=== PATIENT | female | born 1935 | race Caucasian/White ===

== ENCOUNTER 2018-07-24 12:46 | Inpatient (IN) | payer MEDICARE, SELFPAY ==
[2018-07-24 14:11] LABS: #Eosinphils 0.2 thou/uL (0.0-0.7); #Lymphocytes 2.3 thou/uL (1.20-3.40); #Monocytes 0.9 thou/uL (0.11-0.59); #Neutrophils 4.1 thou/uL (1.40-6.50); %Basophils 0.4 % (0.0-1.0); %Eosinophils 3.2 % (0.0-10.0); %Lymphocytes 30.5 % (21.0-51.0); %Monocytes 11.7 % (0.0-10.0); %Neutrophils 54.3 % (42.0-75.0); Hemoglobin 11.1 g/dL (12.0-16.0); Mean Corpuscular Volume 88.2 fL (78.0-98.0); Mean Platelet Volume 6.9 fL (7.4-10.4); Platelet Count 233 thou/uL (130-400); RBC Distribution Width 12.6 % (11.5-14.5); Red Blood Cell (RBC) Count 3.69 mill/uL (4.20-5.40); White Blood Cell (WBC) Count 7.5 thou/uL (4.8-10.8)
[2018-07-24 14:29] LABS: ALT (SGPT) 14 U/L (8-55); AST (SGOT) 15 U/L (5-34); Albumin 3.3 g/dL (3.4-4.8); Alkaline Phosphatase 113 U/L (40-150); Anion Gap 14 mmol/L (10-20); BUN (Urea Nitrogen) 11 mg/dL (9.8-20.1); Bilirubin, Total 0.5 mg/dL (0.2-1.2); Calc. Creatinine Clearance 0 mL/min (70-130); Calcium 8.7 mg/dL (7.8-10.44); Carbon Dioxide 27 mmol/L (23-31); Chloride 100 mmol/L (98-107); Estimated GFR-MDRD 52; Glucose 112 mg/dL (83-110); Protein, Total 6.3 g/dL (6.0-8.3); Sodium 139 mmol/L (136-145)
[2018-07-24 14:36] LABS: Potassium 2.3 mmol/L (3.5-5.1)
[2018-07-24] MEDS ORDERED: Potassium Chloride 20 MEQ TAB ONE (14:41)
[2018-07-24] MEDS ORDERED: cefTRIAXone\\ROCEPHIN 1 GM VIAL ONE (15:35)
--- NOTE | 2018-07-24 15:42 | ULT ---
VENOUS DUPLEX SONOGRAM RIGHT LOWER EXTREMITY: HISTORY: Right leg pain and edema. FINDINGS: The right common femoral vein and greater saphenous junction were evaluated along with the femoral, d eep femoral, and posterior tibial vein. Popliteal vein not well visualized due to patient positionin g and lack of mobility. Good color and spectral Doppler flow and compression. IMPRESSION: No sonographic evidence of deep vein thrombosis within the right lower extremity. POS: ARUN
[2018-07-24] MEDS ORDERED: Ondansetron PF 4 MG/2 ML Vial IVP PRN (18:53)
[2018-07-24] MEDS ORDERED: Acetaminophen 325 MG TAB PO PRN (18:53)
[2018-07-24] MEDS ORDERED: Ondansetron ODT 4 MG TAB SL PRN (18:53)
[2018-07-24] MEDS ORDERED: NS 0.9% w/ 40 MEQ KCL 1,000 ML IV SCH (19:00)
--- NOTE | 2018-07-24 20:15 | RAD ---
THREE VIEWS LEFT FOOT: 07/24/18 HISTORY: Left foot pain. FINDINGS: There is mild osteoarthritis involving the first metatarsophalangeal joint,+ tarsometatarsal joints, and tarsal bones. No fracture or dislocation is appreciated. Two screws are seen overlying the distal left fibula. A plantar calcaneal enthesophyte is identified. IMPRESSION: 1. No acute osseous abnormality involving the left foot. 2. Degenerative changes. POS: ARUN
[2018-07-25 05:40] LABS: #Eosinphils 0.2 thou/uL (0.0-0.7); #Lymphocytes 1.9 thou/uL (1.20-3.40); #Monocytes 0.9 thou/uL (0.11-0.59); #Neutrophils 7.1 thou/uL (1.40-6.50); %Basophils 0.2 % (0.0-1.0); %Eosinophils 1.7 % (0.0-10.0); %Lymphocytes 19.1 % (21.0-51.0); %Monocytes 9.1 % (0.0-10.0); %Neutrophils 69.9 % (42.0-75.0); Hemoglobin 10.4 g/dL (12.0-16.0); Mean Corpuscular Volume 88.1 fL (78.0-98.0); Mean Platelet Volume 7.1 fL (7.4-10.4); Platelet Count 233 thou/uL (130-400); RBC Distribution Width 12.8 % (11.5-14.5); Red Blood Cell (RBC) Count 3.46 mill/uL (4.20-5.40); White Blood Cell (WBC) Count 10.1 thou/uL (4.8-10.8)
[2018-07-25 06:02] LABS: Anion Gap 12 mmol/L (10-20); BUN (Urea Nitrogen) 10 mg/dL (9.8-20.1); Calc. Creatinine Clearance 0 mL/min (70-130); Calcium 8.5 mg/dL (7.8-10.44); Carbon Dioxide 27 mmol/L (23-31); Chloride 105 mmol/L (98-107); Estimated GFR-MDRD 65; Glucose 106 mg/dL (83-110); Sodium 141 mmol/L (136-145)
[2018-07-25 06:06] LABS: Potassium 2.9 mmol/L (3.5-5.1)
[2018-07-25] MEDS: NS 0.9% w/ 40 MEQ KCL 1,000 ML IV SCH ×2 (06:42→10:44)
[2018-07-25] MEDS ORDERED: Acetaminophen 325 MG TAB PO PRN (11:40)
[2018-07-25] MEDS ORDERED: traMADol HCl 50 MG TAB PO PRN (11:45)
[2018-07-25] MEDS: Potassium Chloride 20 MEQ TAB PO SCH ×2 (11:51→16:09)
[2018-07-25] MEDS: Piperacillin/Tazobactam 3.375 GM in Sodium Chloride 0.9% 100 ML IVPB SCH ×2 (11:52→18:10)
--- NOTE | 2018-07-25 17:07 | CON ---
DATE OF CONSULTATION: 07/25/2018 REASON FOR CONSULTATION: Cellulitis. HISTORY OF PRESENT ILLNESS: Ms. Oh is an 83-year-old lady, who used to live in [place], but because of inability to care for self, was transferred to this area to 1 of the local nursing homes. She had fallen in [place] and has not been able to ambulate since. Apparently has chronic venous stasis and developed cellulitis in the right leg, which was being managed with oral antimicrobial therapy without clearing the inflammatory process. Therefore, she was admitted. She also had a reported diagnosis of deep vein thrombosis and had been started on Eliquis elsewhere. Currently, the patient on Zosyn. She denies any headaches, visual symptoms, sore throat, odynophagia, or dysphagia. No cough or sputum production. No chest pain. No abdominal pain. She is voiding in a diaper. PAST MEDICAL HISTORY: Includes venous insufficiency, hyperlipidemia, and deep vein thrombosis on Eliquis. PAST SURGICAL HISTORY: Negative. SOCIAL HISTORY: Former smoker, quit 2 years ago. Used to live by herself in [place], but had to be transferred to this area because she is unable to care for self anymore. ALLERGIES: NONE. CURRENT MEDICATIONS: 1. Eliquis. 2. Lipitor. 3. Dorzolamide. 4. Timolol. 5. Piperacillin/tazobactam. 6. Tramadol. PHYSICAL EXAMINATION: VITAL SIGNS: T-max 98.8, blood pressure 101/51, pulse 81, respirations 16, and O2 saturation 94% to 95%. SKIN: Shows a few areas of bruising and shallow ulceration in various parts of her body skin, pressure areas from her mobility disorder, and then she has this area of purpuric cellulitic skin eruption in the right leg extending from the area immediately below the knee to the foot. She has a peripheral IV access. No lymphadenopathy. HEENT: Ocular movements conjugate. Oral cavity normal except for absence of teeth. NECK: Supple. No jugular vein distention. LUNGS: Symmetric. Clear breath sounds. HEART: S1 and S2. Regular rate. No S3 or S4. ABDOMEN: Soft, not distended or tender. No ascites. No bladder distention. EXTREMITIES: Pulses are 1+ in popliteal and dorsalis pedis. She has not much edema left after recumbent position. She moves extremities on command. She has pain on extension of her feet, mostly at the lateral aspect plantar side. NEUROLOGIC: She is oriented to self and place. She had a hard time in telling me the date. Did follow commands, but her replies were sluggish. LABORATORY DATA: White cell count 7.5 and 10.1, hemoglobin 11, MCV 88, and platelets 233 with 54% neutrophils. Chemistry with potassium 2.3 and 2.9 and creatinine 1.01. Liver profile normal. Albumin 3.3, serum total protein 6.3. No microbiology information. ASSESSMENT: 1. Venous insufficiency. 2. Mobility issues. 3. Hypokalemia. 4. Cellulitis, right leg. 5. Stage 2 to 3 ulcerations and pressure areas. 6. Plantar fasciitis. DISCUSSION: The patient will be converted to Rocephin and then oral Keflex for discharge planning. Switch to penicillin V, potassium 250 mg twice daily for 1 year plus compression wrap for legs. The patient would benefit from a foot extensor device for nighttime to start stretching her plantar fascia and Achilles tendon in preparation for resuming ambulatory capabilities. Job ID: [id number]
[2018-07-25] MEDS: Apixaban 5 MG TAB PO SCH (20:31)
[2018-07-25] MEDS: Gabapentin 300 MG CAP PO SCH (20:31)
[2018-07-25] MEDS: Atorvastatin Calcium 10 MG TAB PO SCH (20:31)
[2018-07-25] MEDS: DorzolamidE/Timolol 2%/0.5% Ophth Soln 10 ml Bottle EA EYE SCH (20:32)
--- NOTE | 2018-07-25 20:48 | HP ---
CHIEF COMPLAINT: Right leg swelling and pain. HISTORY OF PRESENT ILLNESS: Ms. Oh is an 83-year-old female with past medical history of hypertension; heel decubitus, left; and history of DVT; sent from the care home [facility] and they noticed to have right leg swelling with erythema and pain. The patient did not have any fever. The patient was recently admitted to the care home from a Hospital in [place], where she was diagnosed with cellulitis of the leg as well as DVT both legs. The patient was put on an Eliquis as well as antibiotics Zyvox and transferred to the care home. The patient just finished a course of Zyvox about few days ago, and she is continued on Eliquis, but nursing staff noted that the right leg swelling and erythema got worse in the last two days. It is warm to touch and the patient is complaining of pain and to have fever. The patient is unable to ambulate secondary to pain when she stands. It is possibly due to the left heel ulcer. In the ER, the patient was evaluated and found to have right leg cellulitis. The patient received a dose of Rocephin and admitted for further evaluation and management. DVT study venogram was done and still negative for DVT. PAST MEDICAL HISTORY: 1. Hypertension. 2. Hyperlipidemia. 3. Venous insufficiency. 4. DVT of both legs. PAST SURGICAL HISTORY: Status post an IVC filter done 10 years ago according to the patient for her DVT. CURRENT MEDICATIONS: The patient is on, 1. Tylenol p.r.n. 2. Eliquis 5 mg b.i.d. 3. Dorzolamide. 4. Timolol eye drops daily b.i.d. 5. Lasix 40 mg daily. 6. Losartan 100 mg daily. 7. Nifedipine 90 mg daily. 8. Simvastatin 20 mg daily. 9. Tramadol one q.6 p.r.n. ALLERGIES: NKDA. FAMILY HISTORY: Nothing contributory. SOCIAL HISTORY: The patient lives in a care home. No history of smoking. No history of alcohol. REVIEW OF SYSTEMS: CARDIOVASCULAR: No chest pain, no shortness of breath. RESPIRATORY: No cough, cold, congestion. GASTROINTESTINAL: No nausea, vomiting, abdominal pain. GENITOURINARY: No dysuria. CENTRAL NERVOUS SYSTEM: No headache. No dizziness. PHYSICAL EXAMINATION: GENERAL: The patient is alert, awake, oriented x3. VITALS SIGNS: Temperature 98, pulse 66, standing blood pressure 116/60. HEENT: Normocephalic, atraumatic. Pupils equal and reactive. Nasopharynx is pale and dry. ABDOMEN: Soft. No lesions. SKIN: Turgor decreased. NECK: Supple. No JVD. LUNGS: Bilateral air entry. No rales or rhonchi. HEART: S1 and S2, regular. ABDOMEN: Soft. No distention. No tenderness. No organomegaly. Bowel sounds present. RECTAL: No symptoms. CENTRAL NERVOUS SYSTEM: No focal deficit. EXTREMITIES: There is swelling of right lower leg and erythema is less warm to touch. SKIN: Examination showed there is an ulcer on the lateral aspect of the right lower leg as well as there is a stage II ulcer on the right heel area. There is also stage II ulcer in the sacral area. LABORATORY DATA: CBC shows WBC 7.5, hemoglobin 11, hematocrit 32, platelets 233. Metabolic panel: Sodium 139, potassium 2.3, chloride 100, CO2 of 27. Blood urea nitrogen 11, creatinine 1, glucose 112. X-ray of the right foot negative. DVT, venogram ultrasound negative. ASSESSMENT: 1. Possible cellulitis of right lower leg. 2. Severe hypokalemia. 3. Venous insufficiency. 4. History of hypertension. 5. History of deep vein thrombosis, both legs. 6. Status post IVC filter 10 years ago. 7. Hyperlipidemia. 8. Left heel decubitus, sacral area stage 2. PLAN: 1. Vital signs q.4 hours. 2. Activity as tolerated. 3. Allergies, NKDA. 4. Hep-Lock. 5. Zosyn 3.375 g IV piggyback q.6 hours. 6. Continue care home medications. 7. Hold blood pressure medications. 8. Diet regular. 9. We will add gabapentin 300 mg b.i.d. 10. Elevate right leg. 11. Compression stockings. 12. Consult Dr. Smith. Job ID: [id number]
[2018-07-26] MEDS: Piperacillin/Tazobactam 3.375 GM in Sodium Chloride 0.9% 100 ML IVPB SCH ×4 (01:28→18:10)
[2018-07-26 06:42] LABS: #Eosinphils 0.3 thou/uL (0.0-0.7); #Lymphocytes 2.2 thou/uL (1.20-3.40); #Monocytes 0.9 thou/uL (0.11-0.59); #Neutrophils 4.3 thou/uL (1.40-6.50); %Basophils 0.3 % (0.0-1.0); %Eosinophils 3.3 % (0.0-10.0); %Lymphocytes 28.6 % (21.0-51.0); %Monocytes 11.7 % (0.0-10.0); %Neutrophils 56.1 % (42.0-75.0); Hemoglobin 9.9 g/dL (12.0-16.0); Mean Corpuscular Hemoglobin 30.6 pg (27.0-31.0); Mean Corpuscular Volume 89.9 fL (78.0-98.0); Mean Platelet Volume 7.2 fL (7.4-10.4); Platelet Count 251 thou/uL (130-400); RBC Distribution Width 13.1 % (11.5-14.5); Red Blood Cell (RBC) Count 3.23 mill/uL (4.20-5.40); White Blood Cell (WBC) Count 7.7 thou/uL (4.8-10.8)
[2018-07-26 07:01] LABS: Anion Gap 11 mmol/L (10-20); BUN (Urea Nitrogen) 10 mg/dL (9.8-20.1); Calc. Creatinine Clearance 66 mL/min (70-130); Carbon Dioxide 23 mmol/L (23-31); Chloride 109 mmol/L (98-107); Estimated GFR-MDRD 65; Glucose 93 mg/dL (83-110); Potassium 3.8 mmol/L (3.5-5.1); Sodium 139 mmol/L (136-145)
[2018-07-26] MEDS: DorzolamidE/Timolol 2%/0.5% Ophth Soln 10 ml Bottle EA EYE SCH ×2 (09:42→20:36)
[2018-07-26] MEDS: Apixaban 5 MG TAB PO SCH ×2 (09:42→20:36)
[2018-07-26] MEDS: Gabapentin 300 MG CAP PO SCH ×2 (09:42→20:36)
[2018-07-26 16:51] VITALS: BMI 29.4
[2018-07-26] MEDS: Atorvastatin Calcium 10 MG TAB PO SCH (20:36)
[2018-07-27] MEDS: Piperacillin/Tazobactam 3.375 GM in Sodium Chloride 0.9% 100 ML IVPB SCH ×4 (00:10→18:28)
[2018-07-27] MEDS: Gabapentin 300 MG CAP PO SCH ×2 (10:49→21:35)
[2018-07-27] MEDS: DorzolamidE/Timolol 2%/0.5% Ophth Soln 10 ml Bottle EA EYE SCH ×2 (10:49→21:36)
[2018-07-27] MEDS: Apixaban 5 MG TAB PO SCH ×2 (10:49→21:35)
[2018-07-27] MEDS: Atorvastatin Calcium 10 MG TAB PO SCH (21:36)
[2018-07-28] MEDS: Piperacillin/Tazobactam 3.375 GM in Sodium Chloride 0.9% 100 ML IVPB SCH ×4 (01:11→17:51)
[2018-07-28] MEDS: Apixaban 5 MG TAB PO SCH ×2 (09:27→21:31)
[2018-07-28] MEDS: Gabapentin 300 MG CAP PO SCH ×2 (09:27→21:31)
[2018-07-28] MEDS: DorzolamidE/Timolol 2%/0.5% Ophth Soln 10 ml Bottle EA EYE SCH ×2 (09:27→21:31)
[2018-07-28] MEDS: Atorvastatin Calcium 10 MG TAB PO SCH (21:31)
[2018-07-29] MEDS: Piperacillin/Tazobactam 3.375 GM in Sodium Chloride 0.9% 100 ML IVPB SCH ×3 (00:03→11:11)
[2018-07-29 07:12] LABS: #Basophils 0.1 thou/uL (0.0-0.2); #Eosinphils 0.2 thou/uL (0.0-0.7); #Lymphocytes 2.3 thou/uL (1.20-3.40); #Monocytes 0.7 thou/uL (0.11-0.59); #Neutrophils 2.4 thou/uL (1.40-6.50); %Basophils 0.9 % (0.0-1.0); %Eosinophils 3.7 % (0.0-10.0); %Lymphocytes 41.1 % (21.0-51.0); %Monocytes 11.7 % (0.0-10.0); %Neutrophils 42.7 % (42.0-75.0); Hemoglobin 10.5 g/dL (12.0-16.0); Mean Corpuscular HGB CONC 33.3 g/dL (32.0-36.0); Mean Corpuscular Hemoglobin 29.6 pg (27.0-31.0); Mean Platelet Volume 7.1 fL (7.4-10.4); Platelet Count 327 thou/uL (130-400); RBC Distribution Width 13.1 % (11.5-14.5); Red Blood Cell (RBC) Count 3.55 mill/uL (4.20-5.40); White Blood Cell (WBC) Count 5.7 thou/uL (4.8-10.8)
[2018-07-29 07:28] LABS: Anion Gap 12 mmol/L (10-20); BUN (Urea Nitrogen) 7 mg/dL (9.8-20.1); Calc. Creatinine Clearance 67 mL/min (70-130); Calcium 8.3 mg/dL (7.8-10.44); Carbon Dioxide 24 mmol/L (23-31); Chloride 109 mmol/L (98-107); Estimated GFR-MDRD 66; Glucose 87 mg/dL (83-110); Sodium 142 mmol/L (136-145)
[2018-07-29 07:34] LABS: Potassium 2.9 mmol/L (3.5-5.1)
[2018-07-29] MEDS: Gabapentin 300 MG CAP PO SCH ×2 (09:09→20:03)
[2018-07-29] MEDS: Apixaban 5 MG TAB PO SCH ×2 (09:09→20:02)
[2018-07-29] MEDS: DorzolamidE/Timolol 2%/0.5% Ophth Soln 10 ml Bottle EA EYE SCH ×2 (09:09→20:05)
[2018-07-29] MEDS: Potassium Chloride 20 MEQ TAB PO SCH ×4 (11:10→20:03)
--- NOTE | 2018-07-29 16:48 | PRG ---
DATE OF SERVICE: SUBJECTIVE: Feeling better. No respiratory symptoms. No abdominal pain. Still with moderate pain in the right leg. OBJECTIVE: VITAL SIGNS: Normal. Marked improvement of the erythema in the right leg. LUNGS: Clear. HEART: S1 and S2. Regular rate. ABDOMEN: Soft. EXTREMITIES: She has BOO hose in right and left lower extremities. LABORATORY DATA: White cell count 5.7, hemoglobin 10. Potassium 2.9. Microbiology, no sample submitted. ASSESSMENT AND DISCUSSION: Venous insufficiency, mobility issues, hypokalemia, cellulitis of right leg, stage II to III ulcerations, pressure areas, plantar fasciitis. We will switch her to oral Keflex a few more days and then suppression with penicillin VK for a year plus compression stockings. Job ID: [id number]
[2018-07-29] MEDS ORDERED: Magnesium 2 GM/50 ML 2 GM in Premix Bag 1 BAG IVPB SCH (18:30)
[2018-07-29] MEDS: Atorvastatin Calcium 10 MG TAB PO SCH (20:02)
[2018-07-29] MEDS: Cephalexin 250 MG CAP PO SCH (20:03)
[2018-07-30] MEDS: Cephalexin 250 MG CAP PO SCH ×3 (05:46→20:03)
[2018-07-30] MEDS: DorzolamidE/Timolol 2%/0.5% Ophth Soln 10 ml Bottle EA EYE SCH ×2 (07:58→20:03)
[2018-07-30] MEDS: Apixaban 5 MG TAB PO SCH ×2 (07:58→20:03)
[2018-07-30] MEDS: Gabapentin 300 MG CAP PO SCH ×2 (07:58→20:03)
[2018-07-30 09:29] LABS: Anion Gap 13 mmol/L (10-20); BUN (Urea Nitrogen) 6 mg/dL (9.8-20.1); Calc. Creatinine Clearance 66 mL/min (70-130); Calcium 8.7 mg/dL (7.8-10.44); Carbon Dioxide 22 mmol/L (23-31); Chloride 108 mmol/L (98-107); Estimated GFR-MDRD 65; Glucose 153 mg/dL (83-110); Potassium 3.5 mmol/L (3.5-5.1); Sodium 139 mmol/L (136-145)
[2018-07-30] MEDS: Potassium Chloride 20 MEQ TAB PO SCH ×2 (10:23→15:26)
[2018-07-30] MEDS: Atorvastatin Calcium 10 MG TAB PO SCH (20:03)
[2018-07-31] MEDS: Cephalexin 250 MG CAP PO SCH ×3 (05:28→20:08)
[2018-07-31 06:51] LABS: #Basophils 0.1 thou/uL (0.0-0.2); #Eosinphils 0.2 thou/uL (0.0-0.7); #Lymphocytes 2.3 thou/uL (1.20-3.40); #Monocytes 0.6 thou/uL (0.11-0.59); #Neutrophils 3.3 thou/uL (1.40-6.50); %Basophils 1.2 % (0.0-1.0); %Eosinophils 2.8 % (0.0-10.0); %Monocytes 9.6 % (0.0-10.0); %Neutrophils 51.4 % (42.0-75.0); Hemoglobin 11.3 g/dL (12.0-16.0); Mean Corpuscular HGB CONC 33.3 g/dL (32.0-36.0); Mean Corpuscular Hemoglobin 29.9 pg (27.0-31.0); Mean Corpuscular Volume 89.8 fL (78.0-98.0); Mean Platelet Volume 7.4 fL (7.4-10.4); Platelet Count 347 thou/uL (130-400); RBC Distribution Width 13.3 % (11.5-14.5); Red Blood Cell (RBC) Count 3.77 mill/uL (4.20-5.40); White Blood Cell (WBC) Count 6.4 thou/uL (4.8-10.8)
[2018-07-31 06:54] LABS: Anion Gap 10 mmol/L (10-20); BUN (Urea Nitrogen) 11 mg/dL (9.8-20.1); Calc. Creatinine Clearance 68 mL/min (70-130); Calcium 8.7 mg/dL (7.8-10.44); Carbon Dioxide 26 mmol/L (23-31); Chloride 108 mmol/L (98-107); Estimated GFR-MDRD 68; Glucose 87 mg/dL (83-110); Potassium 3.5 mmol/L (3.5-5.1); Sodium 140 mmol/L (136-145)
[2018-07-31] MEDS: Apixaban 5 MG TAB PO SCH ×2 (08:16→20:08)
[2018-07-31] MEDS: Gabapentin 300 MG CAP PO SCH ×2 (08:16→20:08)
[2018-07-31] MEDS: DorzolamidE/Timolol 2%/0.5% Ophth Soln 10 ml Bottle EA EYE SCH ×2 (08:16→20:08)
[2018-07-31] MEDS: Potassium Chloride 20 MEQ TAB PO SCH ×2 (12:43→16:43)
[2018-07-31] MEDS: Atorvastatin Calcium 10 MG TAB PO SCH (20:08)
[2018-08-01] MEDS: Cephalexin 250 MG CAP PO SCH ×3 (06:20→15:50)
[2018-08-01] MEDS: DorzolamidE/Timolol 2%/0.5% Ophth Soln 10 ml Bottle EA EYE SCH (08:04)
[2018-08-01] MEDS: Apixaban 5 MG TAB PO SCH (08:04)
[2018-08-01] MEDS: Gabapentin 300 MG CAP PO SCH (08:04)
[2018-08-01] MEDS ORDERED: Potassium Chloride 10 MEQ TAB PO SCH (09:00)
[2018-08-01 09:30] LABS: Anion Gap 13 mmol/L (10-20); BUN (Urea Nitrogen) 12 mg/dL (9.8-20.1); Calc. Creatinine Clearance 66 mL/min (70-130); Calcium 8.4 mg/dL (7.8-10.44); Carbon Dioxide 20 mmol/L (23-31); Chloride 109 mmol/L (98-107); Estimated GFR-MDRD 65; Glucose 151 mg/dL (83-110); Potassium 3.9 mmol/L (3.5-5.1); Sodium 138 mmol/L (136-145)
[2018-08-01 15:56] VITALS: BP 117/59; TEMP 97.8
--- NOTE | 2018-08-02 12:49 | DIS ---
DATE OF ADMISSION: 07/24/2018 DATE OF DISCHARGE: 08/01/2018 ADMITTING DIAGNOSES: 1. Possible cellulitis of the right lower leg. 2. Severe hypokalemia. 3. Venous insufficiency. 4. History of hypertension. 5. History of deep venous thrombosis, both legs. 6. Status post IVC filter 10 years ago. 7. Hyperlipidemia. 8. Left heel decubitus and also decubitus sacral area, stage 2 or stage 3. FINAL DIAGNOSES: 1. Cellulitis, right lower leg, improved. 2. Venous insufficiency, right lower leg, improving. 3. Severe hypokalemia, corrected. 4. Deep venous thrombosis by history. 5. Status post IVC filter many years ago. 6. Left heel decubitus and also decubitus of the sacrum and also decubitus of the right ankle area. BRIEF SUMMARY OF HOSPITAL COURSE: Ms. Oh is an 83-year-old female, admitted because of right leg swelling. The patient was found to have marked swelling of the right lower leg with erythema, warmness, possible cellulitis. The patient was started on IV antibiotic with Zosyn. The patient was seen directly once in ID consultation. He felt the patient also has marked venous insufficiency, suggested compression stockings as well as continued with antibiotics for now and then later maybe she may need long-term suppressive antibiotics. Wound care team consulted regarding the decubitus. She was started also on physical therapy. In the next few days, her right leg swelling markedly improved, erythema has completely disappeared. The patient is able to stand now. The patient was also found to have severe hypokalemia with a potassium of 2.3 on admission, later improved to 3.8, again it dropped to 2.9, so she was given supplements of potassium and it came up to 3.9. In view of improvement, the patient is being discharged back to [facility]. PHYSICAL EXAMINATION: VITAL SIGNS: At the time of discharge, she was stable and her vital signs were stable. LUNGS: Clear. HEART: S1 and S2 regular. ABDOMEN: Soft, nontender. Bowel sounds heard. DISCHARGE MEDICATIONS: Include: 1. Simvastatin 20 mg daily. 2. Eliquis 5 mg b.i.d. 3. Tramadol 50 q.i.d. p.r.n. 4. Tylenol p.r.n. 5. Keflex 500 three times a day for 10 days. 6. Cosopt eye drops b.i.d. 7. Gabapentin 300 b.i.d. 8. Losartan 50 mg daily. 9. KCl 10 mEq daily. The patient will continue with physical therapy at the [facility] and also wound care. Job ID: [id number]
--- NOTE | 2018-08-05 07:14 | PQF ---
LYNNETTE TAPIA VENKAT R MD [id number] [id number] CLINICAL DOCUMENTATION CLARIFICATION FORM: POST DISCHARGE DATE: 08/05/2018 ATTN: Dr. Langley Please exercise your independent, professional judgment in responding to the clarification form. Clinical indicators are provided on the bottom of this form for your review Please check appropriate box(s): [ ] Pressure Ulcer: (Stage I: Erythema; Stage II: Partial thickness; Stage III : Full thickness; Stage IV: Necrosis to muscle/bone) [ ] Location: Sacrum POA: [ ] Yes [ ] No[ ] Unable to determine Stage (I to IV): [ ] Location: Left Heel POA: [ ] Yes [ ] No[ ] Unable to determine Stage (I to IV): [ ] Location: Right Ankle POA: [ ] Yes [ ] No[ ] Unable to determine Stage (I to IV): ) [ ] Location: Lower Mid Back POA: [ ] Yes [ ] No[ ] Unable to determine Stage (I to IV): ) [ ] Location: Upper Mid Back POA: [ ] Yes [ ] No[ ] Unable to determine Stage (I to IV): ) ___y____ I (concur) with the Wound Care findings as stated below. [ ] No pressure ulcer diagnosis [ ] Deep tissue injury [ ] Other diagnosis (please specify) [ ] Unable to determine In addition, please specify: Present on Admission (POA): [ y ] Yes [ ] No [ ] Unable to determine For continuity of documentation, please document condition throughout progress notes and discharge summary. Thank You. CLINICAL INDICATORS - SIGNS / SYMPTOMS / LABS Per Wound Care: Pressure Ulcer Sacrum: Stage III. Pressure Ulcer Lower Mid Back: Stage III. Pressure Ulcer Upper Mid Back: Stage III. Per H&P: There is an ulcer on the lateral aspect of the right lower leg as well as there is a stage II ulcer on the right heel area. There is also Stage II ulcer in the sacral area. Left heel decubitus, sacral area stage 2. Progress note 07/29 Dr. Smith: Stage II to III ulcerations, pressure areas. Per 07/[address] Smith: Stage 2 to 3 ulcerations and pressure areas. Per discharge summary admitting diagnoses: Left heel decubitus and also decubitus sacral area, stage 2 or stage 3. Final diagnoses: Left heel decubitus and also decubitus of the sacrum and also decubitus of the right ankle area. RISK FACTORS: Mobility Issues. Venous insufficiency. I TREATMENTS: Wound care consult [facility]. Clean with normal saline. Applied Medihoney sheet to base of wound. Covered with protective foam composite dressing. Compression stockings. (This form is maintained as a part of the permanent medical record) 2014 [employer] All Rights Reserved Mandi [email or web address] [phone] NATHANIEL
== END 2018-08-01 18:07 | DRG 602 ==
LOC: ERS 12:46 → T4-B 15:52 → OBSVTOIN 15:52
PROVIDERS: ADMIT Internal Medicine; ATTEND Internal Medicine
DX: L03.115 Cellulitis of right lower limb (principal); L89.153 Pressure ulcer of sacral region, stage 3; L89.103 Pressure ulcer of unspecified part of back, stage 3; L89.622 Pressure ulcer of left heel, stage 2; L89.519 Pressure ulcer of right ankle, unspecified stage; I10 Essential (primary) hypertension; E78.5 Hyperlipidemia, unspecified; E87.6 Hypokalemia; E83.42 Hypomagnesemia; I87.2 Venous insufficiency (chronic) (peripheral); M72.2 Plantar fascial fibromatosis; Z86.718 Personal history of other venous thrombosis and embolism; Z87.891 Personal history of nicotine dependence; Z79.01 Long term (current) use of anticoagulants; Z79.899 Other long term (current) drug therapy
CPT/HCPCS: 36415; 80048; 80053; 83605; 83735; 85025; 96365; G8978-GP-CM; G8979-GP-CL; J0696; J2543; J7050

== ENCOUNTER 2018-09-24 08:01 | Outpatient (CLI) | payer MEDICARE, OTHER ==
--- NOTE | 2018-09-24 11:19 | MRI ---
MRI CERVICAL SPINE: Multiplanar, multisequential imaging of the cervical spine obtained. INDICATION: Fall with injury to neck. Exam is degraded due to motion artifact. FINDINGS: Cervical vertebrae maintain height and alignment. Degenerative disk changes are seen throughout the cervical spine with loss of disk space and height and spondylitic change. At C3-4, disk bulge and spondylosis abut and mildly impinge on the anterior cord. Mild right foramin al narrowing due to facet and uncinate hypertrophy. At C4-5, disk bulge and spondylosis impinge on the anterior cord. Mild foraminal encroachment from u ncinate and facet hypertrophy. At C5-6, posterior disk bulge and spondylosis abut the anterior cord. Right foraminal stenosis due t o facet and uncinate hypertrophy. At C6-7, disk bulge and spondylosis efface the anterior subarachnoid space. No significant cord impi ngement. No significant foraminal narrowing. Cord signal appears normally preserved. 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 POS: ARUN
--- NOTE | 2018-09-24 11:47 | MRI ---
MRI LUMBAR SPINE WITHOUT CONTRAST: HISTORY: Weakness. Low back pain. COMPARISON: None. TECHNIQUE: An MRI of the lumbar spine is performed without intravenous Gadolinium administration. Multisequenti al, multiplanar imaging is performed. FINDINGS: Appropriate T1 marrow signal intensity of the lumbar vertebrae. Lumbar spine vertebral body height i s maintained. There is no fracture. There is loss of disk space height, osteophyte formation, and a small amount of fluid at the anterior aspect of the T11-T12 disk space. There is 4.5 mm of anterolisthesis of L4 upon L5. There are type I modic changes at the L4-L5 disk s pace and minimal type I modic changes along the anterior right aspect of the L5-S1 disk space. Type I modic change is also noted at T12-L1. Appropriate signal intensity of the visualized paraspinal muscles. Mild atrophy of the left posterio r paraspinal muscles is noted. Appropriate signal intensity of the visualized solid organs. Cysts i n the left renal pelvis. The conus medullaris terminates at the upper aspect of L1. T12-L1: Adequate disk hydration. No significant central canal stenosis. The foramina are patent. L1-L2: Desiccation with mild loss of disk space height. There is a T2 and STIR hyperintensity along the posterior aspect of the annulus with resultant mild central canal stenosis. The foramina are pa tent. L2-L3: Desiccation with mild loss of disk space height. Generalized disk bulge, ligamentum flavum t hickening, and facet hypertrophy result in mild central canal stenosis. Moderate to severe right and moderate left foraminal narrowing. L3-L4: Desiccation with mild loss of disk space height. Generalized disk bulge, mild ligamentum fla vum thickening, and facet hypertrophy result in mild central canal stenosis. Mild to moderate right and left foraminal narrowing. L4-L5: Desiccation with moderate loss of disk space height. Generalized disk bulge and facet hypert rophy result in mild central canal stenosis. There is narrowing of the left subarticular zone with p artial obscuration of the traversing left L5 nerve root. There is left greater than right facet hype rtrophy. Moderate right and moderate to severe left neural foraminal narrowing. L5-S1: Desiccation with mild loss of disk space height. There is narrowing of the left subarticular zone secondary to disk material. There is mass effect without obscuration of the traversing left S1 nerve root. There is a small amount of fluid in both facet joints. There is no significant central canal stenosis. Moderate to severe bilateral foraminal narrowing. IMPRESSION: Degenerative changes of the lumbar spine, as detailed above. POS: ARUN
--- NOTE | 2018-09-24 12:23 | RAD ---
LUMBAR SPINE FIVE VIEWS: HISTORY: Weakness and back pain. TECHNIQUE: Lateral view taken with neutral, flexion, and extension positions. FINDINGS: In the frontal position, there is a slight scoliotic curvature to the right. Degenerative changes ar e noted with osteophytes in the lumbar vertebrae. On the lateral view, there is loss of disk space a t L2-L3, L4-L5, and L5-S1. No significant listhesis identified, and no change in alignment with flex ion and extension. Facet hypertrophy. Mild osteophytes from the vertebrae. IMPRESSION: Degenerative changes of the lumbar spine, as described. POS: ARUN
== END 2018-09-24 08:02 | disposition home or self-care (01) ==
LOC: MRI 08:01
PROVIDERS: ATTEND Neurological Surgery
DX: M54.5 Low back pain (principal); R53.1 Weakness; R26.89 Other abnormalities of gait and mobility; M47.812 Spondylosis without myelopathy or radiculopathy, cervical region; M47.816 Spondylosis without myelopathy or radiculopathy, lumbar region
CPT/HCPCS: 72100; 72141; 72148

== ENCOUNTER 2018-10-21 13:27 | Outpatient (CLI) | payer MEDICARE, OTHER ==
[~2018-10-21 13:27] MED LIST: Lidocaine 2% PF 100 mg/5 ml Syringe ONE; Sodium Chloride 0.9% 15 ML NEB ONE
--- NOTE | 2018-10-21 17:33 | HP ---
HISTORY OF PRESENT ILLNESS: Ms. Dionne Oh is a very pleasant 83-year-old accompanied by her son, who [facility] for evaluation of ulcerations of the right and left heels. The patient has 1 ulceration over the right heel and another ulceration over the left heel. For the ulceration of the right heel, the patient has been receiving dressing changes of honey alginate at [facility]. For the ulceration of the left heel, the patient has been receiving dressing changes of Hydrogel and collagen. The patient is accompanied by staff members of [facility] in addition to her son today. The patient previously had a sacral pressure ulceration, which has now healed completely. The patient states that the ulcerations of her right and left feet have been present for approximately 4 months. PAST MEDICAL HISTORY: 1. Hypertension. 2. History of breast carcinoma, status post lumpectomy. 3. History of deep venous thrombosis of right and left lower extremities. PAST SURGICAL HISTORY: 1. IVC filter placement. 2. Lumpectomy. MEDICATIONS: 1. Apixaban. 2. Gabapentin. 3. Klor-Con. 4. Losartan. 5. Simvastatin. 6. Zinc. 7. Multivitamin. 8. Vitamin C. 9. Zofran. 10. Tylenol. 11. Tramadol. ALLERGIES: NO KNOWN DIAGNOSED ALLERGIES. SOCIAL HISTORY: Social history is negative for current tobacco or EtOH use. The patient states that she smoked up to one pack of cigarettes per day for 15 years. The patient states that she stopped smoking in 1973. The patient denies any history of EtOH use. FAMILY HISTORY: Family history is significant for coronary artery disease. The patient states that her father and mother were both diagnosed with coronary artery disease. Family history is negative for diabetes mellitus. PHYSICAL EXAMINATION: VITAL SIGNS: Temperature 98.2, pulse 90, blood pressure 162/70. GENERAL: An 83-year-old female sitting on chair in examination room, in no acute distress. HEENT: Normocephalic and atraumatic. NECK: No nuchal rigidity. CHEST: Clear to auscultation. CV: Regular rate and rhythm. ABDOMEN: Soft. EXTREMITIES: An ulceration of the right heel is present, which measures approximately 1.2 x 1.7 cm. An ulceration of the left heel is present, which measures approximately 0.3 x 0.6 cm. Granulation tissue is present within the margins of each wound. Necrotic and nonviable tissue present within the margins of each wound was debrided with an excisional full-thickness debridement with the use of a curette. Undermining desiccated tissue and callus at the periphery of each wound were eliminated with the use of scissors. No purulent drainage is associated with either wound. No cellulitis of the right or left heel is present. No maceration of the skin of the periwound of either wound is noted. Dorsalis pedis pulse is palpable on the right and on the left. No significant edema of the right or left foot is present on today's exam. NEUROLOGIC: Grossly nonfocal. ASSESSMENT AND PLAN: 1. Ulcerations of right and left heels as described above. Dressing changes of Arik and Sona will be initiated today. These dressing changes are to be performed 3 times per week after cleansing and irrigation at [facility]. No antibiotics will be prescribed today based upon the appearance of the wounds. I will see Ms. Oh again in 2 weeks. The patient and her son understand and are in agreement with the preceding treatment plan. 2. Hypertension. 3. History of deep venous thrombosis of right and left lower extremities, status post IVC filter placement. 4. History of breast carcinoma, status post lumpectomy. Job ID: [id number]
== END 2018-10-21 13:28 | disposition home or self-care (01) ==
LOC: WCC 13:27
PROVIDERS: ATTEND Family Medicine
DX: L97.429 Non-pressure chronic ulcer of left heel and midfoot with unspecified severity (principal); L97.419 Non-pressure chronic ulcer of right heel and midfoot with unspecified severity; I10 Essential (primary) hypertension; Z86.718 Personal history of other venous thrombosis and embolism; Z85.3 Personal history of malignant neoplasm of breast
CPT/HCPCS: 11042; 97139; G0463; 99203; A4218; J2001

== ENCOUNTER 2018-11-17 11:06 | Outpatient (CLI) | payer MEDICARE, OTHER ==
--- NOTE | 2018-11-17 12:23 | PRG ---
DATE OF SERVICE: 11/17/2018 HISTORY: Ms. Dionne Oh is a very pleasant 83-year-old, accompanied by her son, who presents to the Wound Center for evaluation of ulceration of the right and left heels. The patient has one ulceration over the right heel and another ulceration over the left heel. For the ulceration of the right heel, the patient had been receiving dressing changes of honey alginate at [facility] prior to being seen in the Wound Center. For the ulceration of the left heel, the patient had been receiving dressing changes of Hydrogel and collagen prior to the patient's initial presentation to the Wound Center. The patient is again accompanied by a staff member of [facility]. The patient previously stated that the ulcerations of her right and left feet had been present for approximately 4 months. After being seen in the Wound Center, the patient was placed on dressing changes of Medihoney and Allevyn for both ulcerations. PHYSICAL EXAMINATION: VITAL SIGNS: Temperature 98.4, pulse 86, respirations are 18, and blood pressure 137/89. EXTREMITIES: An ulceration over the right lateral heel is present, which measures approximately 0.9 x 0.5 cm. The dimensions of the wound at the time of the patient's last visit were approximately 1.0 x 1.3 cm. The ulceration of the left heel has completely healed and remains healed. Granulation tissue is present within the margins of the right heel ulceration. Necrotic and nonviable tissue present within the wound margins was debrided with an excisional full-thickness debridement. No purulent drainage is associated with the wound. No cellulitis of the right heel is appreciated. No maceration of the skin of the periwound is noted. No significant edema of the right foot is present on exam today. The ulceration is markedly tender to palpation. ASSESSMENT AND PLAN: 1. Ulcerations of right and left heels as described above. As stated above, the ulceration of the left heel has completely healed and remains healed. For the right heel ulceration, dressing changes of Santyl and Allevyn are to be performed 3 times per week after cleansing and irrigation at [facility]. Gauze will be utilized as needed at the time of dressing changes. I will see Ms. Oh again in 2 weeks. 2. Hypertension. 3. 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 4. History of breast carcinoma, status post lumpectomy. 5. Right heel pain. Plain films of the right foot will be obtained today. Job ID: [id number]
--- NOTE | 2018-11-17 12:37 | RAD ---
Right foot 3 views HISTORY: Chronic wound lateral aspect of foot. FINDINGS: Lisfranc joint alignment is anatomic. Plantar arch is maintained. Moderate osteophytosis th roughout the midfoot. Osseous structures are diffusely demineralized. Prominent hallux valgus and bunion deformity with lateral subluxation at the first metatarsophalangeal joint. Soft tissue swelling over the lateral aspect of the foot. No aggressive osseous destruction. No soft tissue gas is visible. IMPRESSION: Degenerative changes. No aggressive osseous destruction. Prominent hallux valgus and bunion deformity. Osteoporosis.
[2018-11-17] MEDS ORDERED: Lidocaine 2% Jelly 5 ML TUBE ONE (15:10)
[2018-11-17] MEDS ORDERED: Sodium Chloride 0.9% 15 ML NEB ONE (15:10)
== END 2018-11-17 11:07 | disposition home or self-care (01) ==
LOC: WCC 11:06 → RAD 11:07
PROVIDERS: ATTEND Family Medicine
DX: S91.301A Unspecified open wound, right foot, initial encounter (principal); M19.071 Primary osteoarthritis, right ankle and foot; M20.11 Hallux valgus (acquired), right foot; M21.611 Bunion of right foot; M81.0 Age-related osteoporosis without current pathological fracture
CPT/HCPCS: 11042; A4218

== ENCOUNTER 2018-12-06 10:21 | Outpatient (CLI) | payer MEDICARE, OTHER ==
--- NOTE | 2018-12-06 11:53 | PRG ---
DATE OF SERVICE: 12/06/2018 HISTORY: Ms. Dionne Oh is a very pleasant 83-year-old, accompanied by her daughter, who presents to the wound center for evaluation of an ulceration over the right heel. For the ulceration of the right heel, the patient has been receiving dressing changes of Santyl and Allevyn 3 times per week after cleansing and irrigation at [facility]. The patient is again accompanied by a staff member from [facility]. The patient previously stated that ulcerations of her right and left feet have been present for approximately 4 months. PHYSICAL EXAMINATION: VITAL SIGNS: Temperature 97.8, pulse 82, respirations 17, and blood pressure 141/89. EXTREMITIES: An ulceration over the right lateral heel is present, which measures approximately 0.9 x 0.5 cm. The dimensions of the wound at the time of the patient's last visit were also approximately 0.9 x 0.5 cm. Granulation tissue is present within the margins of the right heel ulceration. Necrotic and nonviable tissue present within the wound margins was debrided with an excisional full-thickness debridement with the use of a curette. No purulent drainage is associated with the wound. No cellulitis of the right heel is appreciated. Maceration of the skin of the periwound is noted. No significant edema of the right foot is present on exam today. ASSESSMENT AND PLAN: 1. Ulceration of right heel as described above. For the right heel ulceration, dressing changes of Santyl gauze and bordered gauze are to be performed on a daily basis after cleansing and irrigation at [facility]. I will see Ms. Oh again in 2 weeks. 2. Hypertension. 3. 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 4. History of breast carcinoma, status post lumpectomy. 5. Right heel pain. Plain films of the right foot obtained on 11/17/2018 showed no aggressive osseous destruction, degenerative changes, prominent hallux valgus and bunion deformity, and osteoporosis were noted. Job ID: [id number]
[2018-12-06] MEDS ORDERED: Lidocaine 2% PF 100 mg/5 ml Syringe ONE (18:00)
[2018-12-06] MEDS ORDERED: Sodium Chloride 0.9% 15 ML NEB ONE (18:00)
== END 2018-12-06 10:22 | disposition home or self-care (01) ==
LOC: WCC 10:21
PROVIDERS: ATTEND Family Medicine
DX: L97.419 Non-pressure chronic ulcer of right heel and midfoot with unspecified severity (principal); I10 Essential (primary) hypertension; M79.671 Pain in right foot; Z86.718 Personal history of other venous thrombosis and embolism; Z85.3 Personal history of malignant neoplasm of breast; Z98.890 Other specified postprocedural states
CPT/HCPCS: A4218; J2001

== ENCOUNTER 2018-12-22 16:30 | Outpatient (CLI) | payer MEDICARE, OTHER ==
--- NOTE | 2018-12-22 16:57 | PRG ---
DATE OF SERVICE: 12/22/2018 HISTORY: Ms. Dionne Oh is a very pleasant 83-year-old, accompanied by her son, who presents to the Wound Center for evaluation of an ulceration over the right heel. For the ulceration of the right heel, the patient has been receiving dressing changes of Santyl and bordered gauze on a daily basis after cleansing and irrigation at [facility]. The patient is again accompanied by a staff member from [facility]. The patient previously stated that the ulcerations of her right and left feet had been present for approximately 4 months at the time of her initial visit to the Wound Center. PHYSICAL EXAMINATION: VITAL SIGNS: Temperature 98.0, pulse 83, respirations 20, and blood pressure 121/82. EXTREMITIES: An ulceration over the right lateral heel is present, which measures approximately 0.8 x 0.4 cm. The dimensions of the wound at the time of the patient's last visit were approximately 0.9 x 0.5 cm. Granulation tissue is present within the margins of the right heel ulceration. Necrotic and nonviable tissue present within the wound margins was debrided with an excisional full-thickness debridement with the use of a curette and scissors. No purulent drainage is associated with the wound. Erythema of the skin surrounding the ulceration is present, which appears to be secondary to stasis changes as opposed to an infectious process. No maceration of the skin of the periwound is noted. Edema of the right lower extremity is present on today's exam. ASSESSMENT AND PLAN: 1. Ulceration of right heel as described above. For the right heel ulceration, dressing changes of Medihoney alginate and Allevyn are to be performed 3 times per week after cleansing and irrigation at [facility]. I will see Ms. Oh again in 2 weeks. I will also discuss the treatment plan with the patient's wound care nurse at [facility]. 2. Hypertension. 3. 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 4. History of breast carcinoma, status post lumpectomy. 5. Right heel pain. Plain films of the right foot obtained on 11/17/2018 showed no aggressive osseous destruction and degenerative changes. Prominent hallux valgus and bunion deformity and osteoporosis were noted. Job ID: [id number]
[2018-12-22] MEDS ORDERED: Sodium Chloride 0.9% 15 ML NEB ONE (18:00)
[2018-12-22] MEDS ORDERED: Lidocaine 2% PF 100 mg/5 ml Syringe ONE (18:00)
== END 2018-12-22 16:31 | disposition home or self-care (01) ==
LOC: WCC 16:30
PROVIDERS: ATTEND Family Medicine
DX: L97.419 Non-pressure chronic ulcer of right heel and midfoot with unspecified severity (principal); I10 Essential (primary) hypertension; M79.671 Pain in right foot; Z85.3 Personal history of malignant neoplasm of breast; Z86.718 Personal history of other venous thrombosis and embolism
CPT/HCPCS: 11042; A4218; J2001

== ENCOUNTER 2019-01-05 14:38 | Outpatient (CLI) | payer MEDICARE, OTHER ==
[~2019-01-05 14:38] MED LIST changes: -Sodium Chloride 0.9% 15 ML NEB ONE
--- NOTE | 2019-01-05 17:43 | PRG ---
DATE OF SERVICE: 01/05/2019 HISTORY: Ms. Dionne Oh is a very pleasant 83-year-old, accompanied by her son, who presents to the Wound Center for evaluation of an ulceration over the right heel. For the ulceration, the patient has been receiving dressing changes of Medihoney alginate and Allevyn 3 times per week after cleansing and irrigation at [facility] since her last visit to the Wound Center. Again, the patient is accompanied by a staff member from [facility]. The patient previously stated that the ulcerations of her right and left feet had been present for approximately 4 months at the time of her initial visit to the Wound Center. PHYSICAL EXAMINATION: VITAL SIGNS: Temperature 97.7, pulse 86, respirations 19, and blood pressure 142/81. EXTREMITIES: An ulceration over the right lateral heel is present, which measures approximately 1.2 x 0.8 cm. The dimensions of the wound at the time of the patient's last visit were approximately 0.8 x 0.4 cm. Granulation tissue is present within the wound margins. Necrotic and nonviable tissue present within the wound margins was debrided with an excisional full-thickness debridement with the use of scissors. No purulent drainage is associated with the wound. No cellulitis of the right foot is appreciated. No maceration of the skin of the periwound is noted. A dorsalis pedis pulse is easily palpable on the right. Edema of the right lower extremity is present on exam today. After copious irrigation of the wound bed with normal saline, MatriStem sheet was applied to the wound bed of the ulceration followed by Adaptic, ABD, Webril, and the 3M Coban 2-Layer Compression System. ASSESSMENT AND PLAN: 1. Ulceration of right heel as described above. Orders will be transmitted to [facility] for a dressing change in 1 week of Adaptic followed by ABD, Webril, and the 3M Coban 2-Layer Compression System. I will see Ms. Oh again in 2 weeks. I will also discuss the treatment plan with the patient's wound care nurse at [facility]. 2. Hypertension. 3. 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 4. History of breast carcinoma, status post lumpectomy. 5. Right heel pain. Plain films of the right foot obtained on 11/17/2018 showed no aggressive osseous destruction or degenerative changes. Prominent hallux valgus and bunion deformity and osteoporosis were noted. Job ID: [id number]
== END 2019-01-05 14:39 | disposition home or self-care (01) ==
LOC: WCC 14:38
PROVIDERS: ATTEND Family Medicine
DX: L97.419 Non-pressure chronic ulcer of right heel and midfoot with unspecified severity (principal); I10 Essential (primary) hypertension; M79.671 Pain in right foot; M20.11 Hallux valgus (acquired), right foot; M21.611 Bunion of right foot; M81.0 Age-related osteoporosis without current pathological fracture; Z86.718 Personal history of other venous thrombosis and embolism; Z85.3 Personal history of malignant neoplasm of breast; Z98.890 Other specified postprocedural states
CPT/HCPCS: C5275; J2001; Q4166-KX-JC

== ENCOUNTER 2019-01-19 14:38 | Outpatient (CLI) | payer MEDICARE, OTHER ==
[~2019-01-19 14:38] MED LIST changes: +Lidocaine 2% 11 ML SYR ONE; -Lidocaine 2% PF 100 mg/5 ml Syringe ONE; +Sodium Chloride 0.9% 15 ML NEB ONE
--- NOTE | 2019-01-19 15:26 | PRG ---
DATE OF SERVICE: 01/19/2019 HISTORY: Ms. Dionne Oh is a very pleasant 83-year-old, accompanied by her daughter, who presents to the Wound Center for evaluation of an ulceration over the right heel. At the time of the patient's last visit, MatriStem sheet was applied to the right heel ulceration. The patient has been discharged from [facility] since her last visit to the Wound Center. The patient's daughter states that Ms. Oh will be receiving dressing changes with the assistance of Home Health. PHYSICAL EXAMINATION: VITAL SIGNS: Temperature 97.5, pulse 85, respirations 16, and blood pressure 142/66. EXTREMITIES: An ulceration over the right lateral heel is present, which measures approximately 1.2 x 0.5 cm. Necrotic and nonviable tissue present within the wound margins were debrided with an excisional full-thickness debridement with the use of scissors. A sample of the necrotic tissue within the wound margins was excised with the use of scissors and sent to Microbiology for aerobic and anaerobic cultures. No grossly purulent drainage is associated with the wound. Erythema of the skin surrounding the wound is present. No maceration of the skin of the periwound is noted. ASSESSMENT/PLAN: 1. Ulceration of right heel as described above. The ulceration has improved in its appearance since the patient's last visit. Dressing changes of Xeroform and Allevyn will be initiated today. These dressing changes are to be performed 3 times per week after cleansing and irrigation with the assistance of Home Health. I will see Ms. Oh again in 2 weeks if her wound is still present at this time. The patient and her daughter understand and are in agreement with the preceding treatment plan. 2. Hypertension. 3. 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 4. History of breast carcinoma, status post lumpectomy. Job ID: [id number]
== END 2019-01-19 14:39 | disposition home or self-care (01) ==
LOC: WCC 14:38
PROVIDERS: ATTEND Family Medicine
DX: L97.419 Non-pressure chronic ulcer of right heel and midfoot with unspecified severity (principal); I10 Essential (primary) hypertension; Z85.3 Personal history of malignant neoplasm of breast; Z86.718 Personal history of other venous thrombosis and embolism
CPT/HCPCS: 11042; 36415; 80053; 82306; 84443; 85025; 87070; 87077; 87186; 87205; A4218

== ENCOUNTER 2019-02-03 15:42 | Outpatient (CLI) | payer MEDICARE, OTHER ==
--- NOTE | 2019-02-03 17:35 | PRG ---
DATE OF SERVICE: 02/03/2019 HISTORY: Ms. Dionne Oh is a very pleasant 83 years old, accompanied by her grandson, who presents to the Wound Center for evaluation of an ulceration over the right heel. The patient has received treatment with MatriStem sheet for the right heel ulceration. For the ulceration over the right heel, the patient is receiving dressing changes with the assistance of Home Health. PHYSICAL EXAMINATION: VITAL SIGNS: Temperature 97.6, pulse 88, respirations 20, blood pressure 136/63. EXTREMITIES: An ulceration over the right lateral heel is present, which measures approximately 0.7 x 1.0 cm. Dry, stable eschar covers the wound bed in its entirety. No purulent drainage is associated with the wound. No erythema of the skin surrounding the wound is present. No maceration of the skin of the periwound is noted. ASSESSMENT AND PLAN: 1. Ulceration of right heel as described above. Again, the ulceration has improved in its appearance since the patient's last visit. Dressing changes of bordered gauze are to be performed 3 times per week after cleansing and irrigation with the assistance of Home Health. The ulceration has almost healed completely and Ms. Oh will be discharged from clinic today with followup on a p.r.n. basis. 2. Hypertension. 3. 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 4. History of breast carcinoma, status post lumpectomy. Job ID: [id number]
== END 2019-02-03 15:43 | disposition home or self-care (01) ==
LOC: WCC 15:42
PROVIDERS: ATTEND Family Medicine
DX: L97.419 Non-pressure chronic ulcer of right heel and midfoot with unspecified severity (principal); I10 Essential (primary) hypertension; Z85.3 Personal history of malignant neoplasm of breast; Z86.718 Personal history of other venous thrombosis and embolism; Z98.890 Other specified postprocedural states
CPT/HCPCS: 97139; G0463; 99213

== ENCOUNTER 2019-07-07 13:03 | Outpatient (CLI) | payer MEDICARE, OTHER ==
--- NOTE | 2019-07-07 14:08 | BD ---
BONE DENSITOMETRY USING DEXA: HISTORY: Post menopausal screening for osteoporosis. Age related osteoporosis without current pathological fra cture. FINDINGS: LUMBAR SPINE BMD (g/cm2) T-SCORE L1 0.858 -1.2 L2 1.014 -0.1 L3 1.057 -0.2 L4 1.109 0.4 TOTAL 1.018 -0.3 BMD (g/cm2) T-SCORE NECK 0.613 -2.1 TOTAL 0.758 -1.5 The 10 year fracture risk for a major osteoporotic fracture is 16% and for a hip fracture is 4.9%. IMPRESSION: Osteopenia. POS: ARUN
--- NOTE | 2019-07-15 09:35 | MMO ---
Bilateral MAMMO Bilat Screen [facility]. CLINICAL HISTORY: Patient is 84 years old and is seen for screening. The patient has the following family history of breast cancer: mother, at age 82 and sister, at age 52. The patient has no personal history of cancer. The patient has a history of left Excisional Biopsy - benign. VIEWS: The views performed were: bilateral craniocaudal with tomosynthesis and bilateral mediolateral oblique with tomosynthesis. FILMS COMPARED: The present examination has been compared to a prior imaging study performed at [facility] on 06/05/2017. This study has been interpreted with the assistance of computer-aided detection. MAMMOGRAM FINDINGS: There are scattered fibroglandular densities. There are no suspicious masses, suspicious calcifications, or new areas of architectural distortion. IMPRESSION: THERE IS NO MAMMOGRAPHIC EVIDENCE OF MALIGNANCY. A ROUTINE FOLLOW-UP MAMMOGRAM IN 1 YEAR IS RECOMMENDED. THE RESULTS OF THIS EXAM WERE SENT TO THE PATIENT. ACR BI-RADS Category 1 - Negative MAMMOGRAPHY NOTE: 1. A negative mammogram report should not delay a biopsy if a dominant of clinically suspicious mass is present. 2. Approximately 10% to 15% of breast cancers are not detected by mammography. 3. Adenosis and dense breasts may obscure an underlying neoplasm. Reported by: MELISSA ESPINOZA MD Electonically Signed: [id number]
== END 2019-07-07 13:04 | disposition home or self-care (01) ==
LOC: BICMAMMO 13:03
PROVIDERS: ATTEND Family Medicine
DX: Z12.31 Encounter for screening mammogram for malignant neoplasm of breast (principal); M81.0 Age-related osteoporosis without current pathological fracture; M85.89 Other specified disorders of bone density and structure, multiple sites
CPT/HCPCS: 77063; 77067; 77080

== ENCOUNTER 2019-08-31 10:54 | Outpatient (CLI) | payer MEDICARE, OTHER ==
--- NOTE | 2019-08-31 13:23 | MRI ---
MRI LEFT SHOULDER PERFORMED WITHOUT CONTRAST ENHANCEMENT: Date: 08/31/2019 HISTORY: Shoulder pain. FINDINGS: There is considerable motion artifact on this examination. There is some mild to moderate arthrosis o f the AC joint. The infraspinatus tendon appears intact. Supraspinatus tendon is very thin. There is not true fluid density seen, but at the junction of the supra and infraspinatus tendons, there is inocente e intermediate signal change. I suspect that this represents a complete tear with some granulation ti ssue. The normal portion of the tendon is only a very thin fiber residual tendon involving the more p osterior half. There is tendinosis of the more anterior half of the tendon. Subscapularis muscle and tendon are intact. The biceps tendon is normal in position within the bicipi nicole groove. There is some mild atrophy of the supraspinatus muscle and atrophy of the teres minor muscle. There are arthritic changes of the glenohumeral joint space. There is a SLAP type tear involving the superior and posterior superior labrum, also with mild glenoid dysplasia noted. I believe the tear ex tends into the posterior inferior labrum. IMPRESSION: 1. Very thin residual supraspinatus tendon tear. I suspect that there is a component of a complete t ear involving more of the posterior half of the tendon with some intermediate signal change probably related to some scar or granulation tissue, but no true fluid density. 2. SLAP type tear of the superior labrum. The tear does appear to extend into the posterior superior and even posterior inferior labrum. Associated mild glenoid hypoplasia of the posterior glenoid rim and arthritic changes of the glenohumeral joint space. 3. Mild atrophy of the teres minor muscle which could indicate underlying quadrilateral space syndro me. 4. There is also some mild edema change lying along the inferior border of the supraspinatus muscle. POS: TPC
== END 2019-08-31 10:55 | disposition home or self-care (01) ==
LOC: SCSMRI 10:54
PROVIDERS: ATTEND Orthopaedic Surgery
DX: M75.102 Unspecified rotator cuff tear or rupture of left shoulder, not specified as traumatic (principal); S43.432A Superior glenoid labrum lesion of left shoulder, initial encounter; R60.0 Localized edema; M62.512 Muscle wasting and atrophy, not elsewhere classified, left shoulder

== ENCOUNTER 2019-12-06 19:58 | Emergency (ER) | payer MEDICARE, OTHER ==
[2019-12-06 20:40] LABS: #Lymphocytes 1.2 thou/uL (1.20-3.40); #Monocytes 0.8 thou/uL (0.11-0.59); #Neutrophils 6.8 thou/uL (1.40-6.50); %Basophils 0.4 % (0.0-1.0); %Eosinophils 0.1 % (0.0-10.0); %Lymphocytes 13.3 % (21.0-51.0); %Monocytes 9.4 % (0.0-10.0); %Neutrophils 76.8 % (42.0-75.0); Mean Corpuscular HGB CONC 33.6 g/dL (32.0-36.0); Mean Corpuscular Hemoglobin 31.4 pg (27.0-31.0); Mean Corpuscular Volume 93.5 fL (78.0-98.0); Mean Platelet Volume 7.8 fL (7.4-10.4); Platelet Count 181 thou/uL (130-400); RBC Distribution Width 11.8 % (11.5-14.5); Red Blood Cell (RBC) Count 3.81 mill/uL (4.20-5.40); White Blood Cell (WBC) Count 8.8 thou/uL (4.8-10.8)
[2019-12-06 20:57] LABS: Bacteria/HPF None Seen HPF (None Seen); Bilirubin Negative (Negative); Blood, Urine 2+ (Negative); Clarity Clear (Clear); Glucose, Urine (Dipstick) Normal (Negative); Leukocyte Negative Leu/uL (Negative); Nitrite Negative (Negative); Protein, Urine (Dipstick) 30 mg/dL (Neg-Trace); RBC/HPF 0-3 HPF (0-3); Squamous Epithelial None Seen HPF (0-3); Urobilinogen Normal mg/dL (Less than 2); WBC/HPF 0-3 HPF (0-3)
[2019-12-06 21:01] LABS: ALT (SGPT) 36 U/L (8-55); AST (SGOT) 45 U/L (5-34); Albumin 3.7 g/dL (3.4-4.8); Alkaline Phosphatase 82 U/L (40-110); Anion Gap 10 mmol/L (10-20); BUN (Urea Nitrogen) 20 mg/dL (9.8-20.1); Bilirubin, Total 0.6 mg/dL (0.2-1.2); Calc. Creatinine Clearance 0 mL/min (70-130); Calcium 8.8 mg/dL (7.8-10.44); Carbon Dioxide 23 mmol/L (23-31); Chloride 105 mmol/L (98-107); Estimated GFR-MDRD 43; Globulin 2.5 g/dL (2.4-3.5); Glucose 113 mg/dL (83-110); Lipase 18 U/L (8-78); Potassium 3.4 mmol/L (3.5-5.1); Protein, Total 6.2 g/dL (6.0-8.3); Sodium 135 mmol/L (136-145)
--- NOTE | 2019-12-06 21:09 | RAD ---
CHEST ONE VIEW: 12/06/19 INDICATION: History of fever. COMPARISON: None. FINDINGS: Lungs are clear. Heart size is upper limits of normal. There are vascular calcifications involving th e aorta. No pleural effusion or pneumothorax evident. No acute osseous abnormality is noted. IMPRESSION: No acute cardiopulmonary abnormality. POS: BH
== END 2019-12-06 23:44 | disposition home or self-care (01) ==
LOC: ERS 19:58
DX: B34.9 Viral infection, unspecified (principal); M79.10 Myalgia, unspecified site; I10 Essential (primary) hypertension; E78.5 Hyperlipidemia, unspecified; G62.9 Polyneuropathy, unspecified; Z86.718 Personal history of other venous thrombosis and embolism; Z79.899 Other long term (current) drug therapy
CPT/HCPCS: 36415; 51701; 71045; 80053; 81003; 81015; 83605; 83690; 85025; 87040; 87086; 87149; A4353

== ENCOUNTER 2020-02-10 11:47 | Outpatient (CLI) | payer MEDICARE, OTHER ==
--- NOTE | 2020-02-10 12:17 | RAD ---
XR Ribs Lt>=2 View W/PA CXR History: Left lower quadrant pain. Anterior rib pain Comparison: None. Findings: Moderate dextro scoliosis lumbar spine. IVC filter is in place. Lungs are mildly hyperinflated. No pneumothorax. No significant effusion. Calcified granuloma left monica ng base. No displaced left rib fracture. Impression: No displaced left rib fracture.
--- NOTE | 2020-02-10 12:18 | RAD ---
XR Thoracic Spine 3 V STANDARD History: M 53.6. Pain Comparison: None. Findings: No acute thoracic spine compression deformity. Mild S-shaped scoliosis thoracolumbar spine. IVC filter is in place. Relatively high-grade anterior T10/T11 and T11/T12 degenerative disc space height loss with sclerosis and osteophyte formation. Impression: Lower thoracic spine degenerative change. No acute compression deformity.
[2020-02-10 16:21] LABS: ALT (SGPT) 18 U/L (8-55); AST (SGOT) 23 U/L (5-34); Albumin 4.5 g/dL (3.4-4.8); Alkaline Phosphatase 103 U/L (40-110); Anion Gap 12 mmol/L (10-20); BUN (Urea Nitrogen) 21 mg/dL (9.8-20.1); Bilirubin, Total 0.5 mg/dL (0.2-1.2); Calc. Creatinine Clearance 0 mL/min (70-130); Calcium 9.4 mg/dL (7.8-10.44); Carbon Dioxide 28 mmol/L (23-31); Chloride 106 mmol/L (98-107); Estimated GFR-MDRD 49; Globulin 2.5 g/dL (2.4-3.5); Glucose 91 mg/dL (83-110); Lipase 30 U/L (8-78); Potassium 4.6 mmol/L (3.5-5.1); Sodium 141 mmol/L (136-145)
== END 2020-02-10 11:48 | disposition home or self-care (01) ==
LOC: SCSRAD 11:47
PROVIDERS: ATTEND Family Medicine
DX: M54.6 Pain in thoracic spine (principal); R10.12 Left upper quadrant pain; M47.814 Spondylosis without myelopathy or radiculopathy, thoracic region
CPT/HCPCS: 36415; 72072; 80053; 82150; 83690

== ENCOUNTER 2020-02-24 10:46 | Outpatient (CLI) | payer MEDICARE, OTHER ==
--- NOTE | 2020-02-24 12:58 | CT ---
CT ABDOMEN AND PELVIS WITH ORAL AND IV CONTRAST: HISTORY: Left upper quadrant pain. FINDINGS: There are calcified granulomas in the left lower lobe and the spleen. The patient is post cholecyste ctomy. The liver, pancreas, adrenal glands, and kidneys are normal. No free air, free fluid, or lym phadenopathy is seen in the abdomen or pelvis. An IVC filter is present superiorly extending to L3-4 level. 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 Multilevel degenerative changes are not ed. The small bowel loops are not abnormally dilated. There is sigmoid diverticulosis. Uterus is p resent. There is a 4.5 x 6 x 3.8 cm cystic mass in the right adnexa, likely ovarian. IMPRESSION: 1. Old granulomatous disease. 2. Sigmoid diverticulosis. 3. A 6 x 3.8 x 4.5 cm cystic right adnexal mass, likely ovarian. Gynecologic consultation and pelvi c ultrasound are recommended. POS: NICKA
== END 2020-02-24 10:47 | disposition home or self-care (01) ==
LOC: SCSCT 10:46
PROVIDERS: ATTEND Family Medicine
DX: R10.12 Left upper quadrant pain (principal); K57.30 Diverticulosis of large intestine without perforation or abscess without bleeding; N83.8 Other noninflammatory disorders of ovary, fallopian tube and broad ligament
CPT/HCPCS: 74177

== ENCOUNTER 2020-10-28 19:19 | Emergency (ER) | payer MEDICARE, OTHER ==
[2020-10-28 20:05] LABS: #Eosinphils 0.4 thou/uL (0.0-0.7); #Lymphocytes 0.4 thou/uL (1.20-3.40); #Monocytes 0.5 thou/uL (0.11-0.59); %Eosinophils 6.8 % (0.0-10.0); %Lymphocytes 5.8 % (21.0-51.0); %Monocytes 8.1 % (0.0-10.0); %Neutrophils 79.3 % (42.0-75.0); Hemoglobin 11.7 g/dL (12.0-16.0); Mean Corpuscular HGB CONC 33.2 g/dL (32.0-36.0); Mean Corpuscular Hemoglobin 30.2 pg (27.0-31.0); Platelet Count 142 thou/uL (130-400); RBC Distribution Width 11.9 % (11.5-14.5); Red Blood Cell (RBC) Count 3.88 mill/uL (4.20-5.40); White Blood Cell (WBC) Count 6.3 thou/uL (4.8-10.8)
[2020-10-28 20:06] LABS: Bacteria/HPF None Seen HPF (None Seen); Bilirubin Negative (Negative); Blood, Urine Trace (Negative); Clarity Clear (Clear); Glucose, Urine (Dipstick) Normal (Negative); Ketone, Urine Trace mg/dL (Negative); Leukocyte Negative Leu/uL (Negative); Nitrite Negative (Negative); Protein, Urine (Dipstick) 30 mg/dL (Neg-Trace); RBC/HPF 0-3 HPF (0-3); Specific Gravity, Urine 1.019 (1.002-1.036); Squamous Epithelial 0-3 HPF (0-3); Urobilinogen Normal mg/dL (Less than 2); WBC/HPF 0-3 HPF (0-3)
[2020-10-28 20:13] LABS: INR-International Normal Ratio 1.2; PTT 26.4 sec (22.9-36.1); Prothrombin Time 15.8 sec (12.0-14.7)
[2020-10-28 20:26] LABS: ALT (SGPT) 21 U/L (8-55); AST (SGOT) 28 U/L (5-34); Albumin 3.6 g/dL (3.4-4.8); Alkaline Phosphatase 92 U/L (40-110); Anion Gap 16 mmol/L (10-20); BUN (Urea Nitrogen) 25 mg/dL (9.8-20.1); Bilirubin, Total 0.2 mg/dL (0.2-1.2); Calc. Creatinine Clearance 0 mL/min (70-130); Calcium 7.8 mg/dL (7.8-10.44); Carbon Dioxide 21 mmol/L (23-31); Chloride 105 mmol/L (98-107); Globulin 2.4 g/dL (2.4-3.5); Glucose 103 mg/dL (83-110); Potassium 3.6 mmol/L (3.5-5.1); Sodium 138 mmol/L (136-145)
== END 2020-10-28 21:10 | disposition home or self-care (01) ==
LOC: ERS 19:19
DX: R50.83 Postvaccination fever (principal); E86.0 Dehydration; E78.5 Hyperlipidemia, unspecified; I10 Essential (primary) hypertension; Z79.899 Other long term (current) drug therapy
CPT/HCPCS: 36415; 71045; 80053; 81003; 81015; 83605; 85025; 85610; 85730; 87040; 87086; 94760

== ENCOUNTER 2020-10-30 20:38 | Inpatient (IN) | payer MEDICARE, OTHER ==
[2020-10-30 21:46] LABS: #Eosinphils 0.4 thou/uL (0.0-0.7); #Lymphocytes 0.7 thou/uL (1.20-3.40); #Monocytes 0.4 thou/uL (0.11-0.59); #Neutrophils 4.9 thou/uL (1.40-6.50); %Basophils 0.2 % (0.0-1.0); %Eosinophils 6.8 % (0.0-10.0); %Lymphocytes 11.4 % (21.0-51.0); %Monocytes 6.2 % (0.0-10.0); %Neutrophils 75.4 % (42.0-75.0); Hemoglobin 13.2 g/dL (12.0-16.0); Mean Corpuscular HGB CONC 32.9 g/dL (32.0-36.0); Mean Corpuscular Volume 91.3 fL (78.0-98.0); Mean Platelet Volume 8.5 fL (7.4-10.4); Platelet Count 138 thou/uL (130-400); RBC Distribution Width 11.9 % (11.5-14.5); Red Blood Cell (RBC) Count 4.38 mill/uL (4.20-5.40); White Blood Cell (WBC) Count 6.5 thou/uL (4.8-10.8)
[2020-10-30 22:10] LABS: ALT (SGPT) 45 U/L (8-55); AST (SGOT) 48 U/L (5-34); Albumin 3.9 g/dL (3.4-4.8); Alkaline Phosphatase 106 U/L (40-110); Anion Gap 17 mmol/L (10-20); BUN (Urea Nitrogen) 30 mg/dL (9.8-20.1); Bilirubin, Total 0.3 mg/dL (0.2-1.2); CK (CPK) 132 U/L (29-168); Calc. Creatinine Clearance 0 mL/min (70-130); Calcium 8.4 mg/dL (7.8-10.44); Carbon Dioxide 19 mmol/L (23-31); Chloride 103 mmol/L (98-107); Globulin 2.9 g/dL (2.4-3.5); Glucose 106 mg/dL (83-110); Potassium 3.6 mmol/L (3.5-5.1); Protein, Total 6.8 g/dL (5.8-8.1); Sodium 135 mmol/L (136-145)
[2020-10-30] MEDS ORDERED: Acetaminophen 500 MG TAB ONE (22:22)
[2020-10-30] MEDS ORDERED: Piperacillin/Tazobactam 4.5 GM VIAL ONE (22:22)
[2020-10-30] MEDS ORDERED: Vancomycin 1 GM/200 ML BAG ONE (23:08)
[2020-10-31] MEDS ORDERED: Ondansetron PF 4 MG/2 ML Vial IVP PRN (04:23)
[2020-10-31 04:42] VITALS: BMI 28.9
[2020-10-31] MEDS: Sodium Chloride 0.9% 1,000 ML IV SCH ×3 (06:22→21:03)
[2020-10-31] MEDS ORDERED: Cefepime 1 GM VIAL ONE (06:34)
[2020-10-31] MEDS: Cefepime 1 GM in Sodium Chloride 0.9% 100 ML IVPB SCH ×2 (06:39→17:54)
[2020-10-31] MEDS ORDERED: Apixaban 5 MG TAB PO SCH (09:00)
[2020-10-31 09:37] LABS: SARS-CoV-2 PCR by NAA Not Detected (NotDetected)
[2020-10-31] MEDS ORDERED: Senokot S 8.6-50 MG TAB PO PRN (10:40)
[2020-10-31] MEDS ORDERED: hydrALAZINE 20 MG/ML VIAL SLOW IVP PRN (10:40)
[2020-10-31] MEDS ORDERED: Cepastat Lozenges 1 LOZ PO PRN (10:40)
[2020-10-31] MEDS ORDERED: HYDROcodone/Acetaminophen 5/325 mg Tablet PO PRN (10:40)
[2020-10-31] MEDS ORDERED: Loratadine 10 MG TAB PO PRN (10:40)
[2020-10-31] MEDS ORDERED: GUAIFENESIN SF SOLN 200 MG/10 ML UDCUP PO PRN (10:40)
[2020-10-31] MEDS ORDERED: Ondansetron ODT 4 MG TAB PO PRN (10:40)
[2020-10-31] MEDS ORDERED: Bisacodyl 5 MG TAB PO PRN (10:40)
[2020-10-31] MEDS ORDERED: Loperamide HCl 2 MG CAP PO PRN (10:40)
[2020-10-31] MEDS ORDERED: Sodium Chloride 0.65% Nasal 44 ML BOT EA NARE PRN (10:40)
[2020-10-31 11:04] LABS: Bacteria/HPF None Seen HPF (None Seen); Bilirubin Negative (Negative); Blood, Urine Trace (Negative); Clarity Clear (Clear); Glucose, Urine (Dipstick) Normal (Negative); Ketone, Urine Negative (Negative); Leukocyte Negative Leu/uL (Negative); Nitrite Negative (Negative); Protein, Urine (Dipstick) 30 mg/dL (Neg-Trace); RBC/HPF 0-3 HPF (0-3); Specific Gravity, Urine 1.021 (1.002-1.036); Squamous Epithelial 0-3 HPF (0-3); Urobilinogen Normal mg/dL (Less than 2); WBC/HPF 0-3 HPF (0-3)
[2020-10-31] MEDS ORDERED: Acetaminophen 325 MG TAB ONE (12:16)
[2020-10-31] MEDS: Acetaminophen 325 MG TAB PO PRN ×2 (12:20→22:05)
[2020-10-31] MEDS: Apixaban 2.5 MG TAB PO SCH (21:03)
[2020-10-31 22:08] LABS: Vancomycin, Random 6.4 ug/mL (See Comment)
[2020-10-31] MEDS ORDERED: Vancomycin 1 GM in Premix Bag 1 BAG IVPB SCH ×2 (22:45→23:00)
[2020-11-01 04:39] LABS: Hemoglobin 10.4 g/dL (12.0-16.0); Mean Corpuscular HGB CONC 33.1 g/dL (32.0-36.0); Mean Corpuscular Hemoglobin 30.1 pg (27.0-31.0); Mean Corpuscular Volume 90.9 fL (78.0-98.0); Mean Platelet Volume 8.2 fL (7.4-10.4); Platelet Count 118 thou/uL (130-400); RBC Distribution Width 12.1 % (11.5-14.5); Red Blood Cell (RBC) Count 3.46 mill/uL (4.20-5.40); White Blood Cell (WBC) Count 6.4 thou/uL (4.8-10.8)
[2020-11-01 04:46] LABS: Anion Gap 10 mmol/L (10-20); BUN (Urea Nitrogen) 16 mg/dL (9.8-20.1); Calc. Creatinine Clearance 41 mL/min (70-130); Calcium 7.5 mg/dL (7.8-10.44); Carbon Dioxide 18 mmol/L (23-31); Chloride 110 mmol/L (98-107); Glucose 101 mg/dL (83-110); Potassium 3.4 mmol/L (3.5-5.1); Sodium 135 mmol/L (136-145)
[2020-11-01 05:05] LABS: Band 4 % (5-11); Eosinophils 5 % (0-10); Lymphocytes 34 % (21-51); MDiff Complete? YES; Monocytes 5 % (0-10); Neutrophil 52 % (42-75); Platelet Morphology Comment Appears Decreased
[2020-11-01] MEDS: Cefepime 1 GM in Sodium Chloride 0.9% 100 ML IVPB SCH ×2 (05:32→17:05)
[2020-11-01] MEDS: Sodium Chloride 0.9% 1,000 ML IV SCH ×2 (05:34→11:20)
[2020-11-01] MEDS: Apixaban 2.5 MG TAB PO SCH (08:59)
[2020-11-01] MEDS ORDERED: Apixaban 2.5 MG TAB PO SCH (11:00)
[2020-11-01] MEDS: CEFAZOLIN 2 GM in Premix Bag 1 BAG IVPB SCH (18:23)
[2020-11-01] MEDS: Apixaban 5 MG TAB PO SCH (20:53)
[2020-11-01] MEDS: Acetaminophen 325 MG TAB PO PRN (20:54)
[2020-11-01] MEDS: Melatonin 3 MG TAB PO PRN (22:12)
[2020-11-02] MEDS: CEFAZOLIN 2 GM in Premix Bag 1 BAG IVPB SCH ×3 (03:15→20:41)
[2020-11-02 07:42] LABS: Anion Gap 11 mmol/L (10-20); BUN (Urea Nitrogen) 14 mg/dL (9.8-20.1); Calc. Creatinine Clearance 52 mL/min (70-130); Calcium 7.9 mg/dL (7.8-10.44); Carbon Dioxide 21 mmol/L (23-31); Chloride 113 mmol/L (98-107); Glucose 92 mg/dL (83-110); Potassium 3.2 mmol/L (3.5-5.1); Sodium 142 mmol/L (136-145)
[2020-11-02 08:00] LABS: Hemoglobin 10.8 g/dL (12.0-16.0); Mean Corpuscular HGB CONC 33.8 g/dL (32.0-36.0); Mean Corpuscular Hemoglobin 30.8 pg (27.0-31.0); Mean Corpuscular Volume 91.2 fL (78.0-98.0); Platelet Count 143 thou/uL (130-400); Red Blood Cell (RBC) Count 3.51 mill/uL (4.20-5.40); White Blood Cell (WBC) Count 6.3 thou/uL (4.8-10.8)
[2020-11-02 08:01] LABS: Band 7 % (5-11); Eosinophils 4 % (0-10); Lymphocytes 36 % (21-51); MDiff Complete? YES; Monocytes 8 % (0-10); Neutrophil 37 % (42-75); Platelet Morphology Comment Appears Adequate; RBC Morphology Normal; Reactive Lymphocytes 8 % (0-10); Reflex for Review?? YES
[2020-11-02] MEDS: Apixaban 5 MG TAB PO SCH ×2 (09:29→20:40)
[2020-11-02] MEDS: Melatonin 3 MG TAB PO PRN (21:23)
[2020-11-02] MEDS: Acetaminophen 325 MG TAB PO PRN (22:00)
[2020-11-03] MEDS: CEFAZOLIN 2 GM in Premix Bag 1 BAG IVPB SCH ×3 (04:53→17:35)
[2020-11-03 05:40] LABS: Anion Gap 9 mmol/L (10-20); BUN (Urea Nitrogen) 12 mg/dL (9.8-20.1); Calc. Creatinine Clearance 60 mL/min (70-130); Calcium 7.6 mg/dL (7.8-10.44); Carbon Dioxide 25 mmol/L (23-31); Chloride 110 mmol/L (98-107); Glucose 91 mg/dL (83-110); Sodium 141 mmol/L (136-145)
[2020-11-03 06:12] LABS: Hemoglobin 8.6 g/dL (12.0-16.0); Mean Corpuscular HGB CONC 32.8 g/dL (32.0-36.0); Mean Corpuscular Hemoglobin 29.8 pg (27.0-31.0); Mean Corpuscular Volume 90.8 fL (78.0-98.0); Mean Platelet Volume 7.5 fL (7.4-10.4); Platelet Count 215 thou/uL (130-400); RBC Distribution Width 11.9 % (11.5-14.5); Red Blood Cell (RBC) Count 2.89 mill/uL (4.20-5.40); White Blood Cell (WBC) Count 6.1 thou/uL (4.8-10.8)
[2020-11-03 06:22] LABS: Band 4 % (5-11); Eosinophils 10 % (0-10); Lymphocytes 43 % (21-51); MDiff Complete? YES; Monocytes 4 % (0-10); Neutrophil 37 % (42-75); Reactive Lymphocytes 2 % (0-10)
[2020-11-03] MEDS ORDERED: Potassium Chloride 20 MEQ TAB PO SCH ×2 (08:00)
[2020-11-03] MEDS ORDERED: Electrolyte Replacement Protocol 1 EACH FS SCH (08:00)
[2020-11-03 08:27] LABS: Phosphorus 2.9 mg/dL (2.3-4.7)
[2020-11-03] MEDS ORDERED: Dorzolamide HCl 2% Ophth Soln 10 ml Bottle EA EYE SCH (09:00)
[2020-11-03] MEDS: Apixaban 5 MG TAB PO SCH ×2 (09:15→20:30)
[2020-11-03] MEDS: Losartan 25 MG TAB PO SCH (09:15)
[2020-11-03] MEDS: Acetaminophen 325 MG TAB PO PRN (09:33)
[2020-11-03] MEDS ORDERED: Magnesium 2 GM/50 ML 2 GM in Premix Bag 1 BAG IVPB SCH (10:30)
[2020-11-03] MEDS: Dorzolamide HCl 2% Ophth Soln 10 ml Bottle EA EYE SCH (18:23)
[2020-11-03] MEDS ORDERED: Folic Acid 1 MG TAB PO SCH (21:00)
[2020-11-03] MEDS ORDERED: Saccharomyces boulardii 250 MG CAP PO SCH (21:00)
[2020-11-03] MEDS ORDERED: Multivit, Therapeutic 1 TAB PO SCH (21:00)
[2020-11-03] MEDS ORDERED: Atorvastatin Calcium 10 MG TAB PO SCH (21:00)
[2020-11-03] MEDS ORDERED: Cyanocobalamin (Vitamin B-12) 1,000 MCG TAB PO SCH (21:00)
[2020-11-04] MEDS: CEFAZOLIN 2 GM in Premix Bag 1 BAG IVPB SCH ×2 (02:00→10:16)
[2020-11-04 06:01] LABS: Reticulocyte Count 1.2 % (0.5-1.5)
[2020-11-04 06:29] LABS: Anion Gap 10 mmol/L (10-20); BUN (Urea Nitrogen) 13 mg/dL (9.8-20.1); Calc. Creatinine Clearance 60 mL/min (70-130); Calcium 8.1 mg/dL (7.8-10.44); Carbon Dioxide 25 mmol/L (23-31); Chloride 108 mmol/L (98-107); Glucose 95 mg/dL (83-110); Potassium 3.6 mmol/L (3.5-5.1); Sodium 139 mmol/L (136-145)
[2020-11-04 06:34] LABS: #Basophils 0.1 thou/uL (0.0-0.2); #Eosinphils 0.4 thou/uL (0.0-0.7); #Lymphocytes 2.5 thou/uL (1.20-3.40); #Monocytes 0.7 thou/uL (0.11-0.59); %Basophils 0.8 % (0.0-1.0); %Eosinophils 5.8 % (0.0-10.0); %Lymphocytes 37.8 % (21.0-51.0); %Monocytes 10.6 % (0.0-10.0); %Neutrophils 45.1 % (42.0-75.0); Hemoglobin 12.9 g/dL (12.0-16.0); Mean Corpuscular HGB CONC 33.5 g/dL (32.0-36.0); Mean Corpuscular Hemoglobin 30.5 pg (27.0-31.0); Mean Platelet Volume 7.2 fL (7.4-10.4); Platelet Count 252 thou/uL (130-400); RBC Distribution Width 12.1 % (11.5-14.5); Red Blood Cell (RBC) Count 4.23 mill/uL (4.20-5.40); White Blood Cell (WBC) Count 6.6 thou/uL (4.8-10.8)
[2020-11-04] MEDS: Acetaminophen 325 MG TAB PO PRN (06:44)
[2020-11-04] MEDS: Losartan 25 MG TAB PO SCH (07:47)
[2020-11-04] MEDS: Dorzolamide HCl 2% Ophth Soln 10 ml Bottle EA EYE SCH (07:47)
[2020-11-04] MEDS: Apixaban 5 MG TAB PO SCH (07:48)
[2020-11-04] MEDS ORDERED: Potassium Chloride 10 MEQ TAB PO SCH (09:00)
[2020-11-04 11:28] VITALS: BP 154/82; TEMP 98.2
== END 2020-11-04 12:26 | disposition home or self-care (01) | DRG 872 ==
LOC: ERS 20:38 → ERHOLD 10-31 02:39 → 2NO 10-31 16:51 → T4-A 11-02 16:14
PROVIDERS: ADMIT Internal Medicine; ATTEND Internal Medicine
PROC: 06HY33Z Insertion of Infusion Device into Lower Vein, Percutaneous Approach (ICD-10-PCS; principal; 2020-10-31)
DX: A41.9 Sepsis, unspecified organism (principal); L03.116 Cellulitis of left lower limb; L03.115 Cellulitis of right lower limb; N17.9 Acute kidney failure, unspecified; Z20.822 Contact with and (suspected) exposure to COVID-19; R65.20 Severe sepsis without septic shock; E87.6 Hypokalemia; E78.5 Hyperlipidemia, unspecified; I10 Essential (primary) hypertension; H40.9 Unspecified glaucoma; I87.2 Venous insufficiency (chronic) (peripheral); K52.1 Toxic gastroenteritis and colitis; T36.1X5A Adverse effect of cephalosporins and other beta-lactam antibiotics, initial encounter; Z86.718 Personal history of other venous thrombosis and embolism; Z79.01 Long term (current) use of anticoagulants; Z90.49 Acquired absence of other specified parts of digestive tract; Z79.899 Other long term (current) drug therapy; Z82.3 Family history of stroke; Z87.891 Personal history of nicotine dependence
CPT/HCPCS: 36415; 36556; 51701; 70450; 71045; 80048; 80053; 80202; 81003; 81015; 82550; 83605; 83735; 83880; 84100; 85025; 85046; 85060; 85610; 85730; 87040; 87086; 87635; 93005; 93970; 94760; 96365; 96366; 96367; J0690; J0692; J2543; J3370; J3475; J3490; U0003; U0005

== ENCOUNTER 2021-07-14 16:04 | Observation (INO) | payer MEDICARE, OTHER ==
[2021-07-14 16:44] LABS: #Eosinphils 0.2 thou/uL (0.0-0.7); #Monocytes 0.4 thou/uL (0.11-0.59); #Neutrophils 2.7 thou/uL (1.40-6.50); %Basophils 0.6 % (0.0-1.0); %Eosinophils 3.4 % (0.0-10.0); %Lymphocytes 37.8 % (21.0-51.0); %Monocytes 7.1 % (0.0-10.0); %Neutrophils 51.1 % (42.0-75.0); Hemoglobin 13.1 g/dL (12.0-16.0); Mean Corpuscular HGB CONC 32.1 g/dL (32.0-36.0); Mean Corpuscular Volume 93.5 fL (78.0-98.0); Mean Platelet Volume 7.9 fL (7.4-10.4); Platelet Count 195 thou/uL (130-400); RBC Distribution Width 11.7 % (11.5-14.5); Red Blood Cell (RBC) Count 4.35 mill/uL (4.20-5.40); White Blood Cell (WBC) Count 5.2 thou/uL (4.8-10.8)
[2021-07-14 16:55] LABS: Prothrombin Time 13.7 sec (12.0-14.7)
[2021-07-14 16:56] LABS: PTT 31.1 sec (22.9-36.1)
[2021-07-14 17:05] LABS: ALT (SGPT) 14 U/L (8-55); AST (SGOT) 21 U/L (5-34); Albumin 4.2 g/dL (3.4-4.8); Alkaline Phosphatase 88 U/L (40-110); Anion Gap 11 mmol/L (10-20); BUN (Urea Nitrogen) 25 mg/dL (9.8-20.1); Bilirubin, Total 0.4 mg/dL (0.2-1.2); Calc. Creatinine Clearance 0 mL/min (70-130); Calcium 9.4 mg/dL (7.8-10.44); Carbon Dioxide 26 mmol/L (23-31); Chloride 106 mmol/L (98-107); Globulin 3.1 g/dL (2.4-3.5); Glucose 123 mg/dL (83-110); Potassium 4.2 mmol/L (3.5-5.1); Protein, Total 7.3 g/dL (5.8-8.1); Sodium 139 mmol/L (136-145)
[2021-07-14] MEDS ORDERED: Lorazepam 2 MG/ML VIAL ONE (17:18)
[2021-07-14] MEDS ORDERED: Aspirin Chewable 81 MG TAB ONE (17:19)
[2021-07-14] MEDS ORDERED: Meclizine HCl 25 MG TAB ONE (17:19)
[2021-07-14] MEDS ORDERED: Senokot S 8.6-50 MG TAB PO PRN (18:51)
[2021-07-14] MEDS ORDERED: Acetaminophen 325 MG TAB PO PRN (18:51)
[2021-07-14] MEDS ORDERED: Ondansetron ODT 4 MG TAB PO PRN (18:51)
[2021-07-14] MEDS ORDERED: Ondansetron PF 4 MG/2 ML Vial IVP PRN (18:51)
[2021-07-14] MEDS ORDERED: hydrALAZINE 20 MG/ML VIAL SLOW IVP PRN (19:46)
[2021-07-14 20:18] VITALS: BMI 27.6
[2021-07-14] MEDS: Sodium Chloride 0.9% 1,000 ML IV SCH (21:00)
[2021-07-14 23:19] LABS: SARS-CoV-2 NAA Rapid Test Not Detected (NotDetected)
[2021-07-15 05:33] LABS: #Eosinphils 0.2 thou/uL (0.0-0.7); #Lymphocytes 1.5 thou/uL (1.20-3.40); #Monocytes 0.4 thou/uL (0.11-0.59); %Basophils 1.1 % (0.0-1.0); %Eosinophils 4.9 % (0.0-10.0); %Lymphocytes 36.2 % (21.0-51.0); %Neutrophils 47.7 % (42.0-75.0); Hemoglobin 11.3 g/dL (12.0-16.0); Mean Corpuscular HGB CONC 33.2 g/dL (32.0-36.0); Mean Corpuscular Hemoglobin 31.4 pg (27.0-31.0); Mean Corpuscular Volume 94.5 fL (78.0-98.0); Mean Platelet Volume 7.8 fL (7.4-10.4); Platelet Count 169 thou/uL (130-400); RBC Distribution Width 11.7 % (11.5-14.5); Red Blood Cell (RBC) Count 3.61 mill/uL (4.20-5.40); White Blood Cell (WBC) Count 4.2 thou/uL (4.8-10.8)
[2021-07-15 05:43] LABS: Hemoglobin A1c 4.9 % (4.0-6.0)
[2021-07-15 05:56] LABS: Cardiac Risk 2.3 (Less than 4.5)
[2021-07-15 06:34] LABS: Band 2 % (5-11); Eosinophils 3 % (0-10); Lymphocytes 37 % (21-51); MDiff Complete? YES; Monocytes 9 % (0-10); Neutrophil 48 % (42-75); Reactive Lymphocytes 1 % (0-10)
[2021-07-15] MEDS: Sodium Chloride 0.9% 1,000 ML IV SCH (08:51)
[2021-07-15 09:24] LABS: Bacteria/HPF None Seen HPF (None Seen); Bilirubin Negative (Negative); Blood, Urine Negative (Negative); Clarity Clear (Clear); Glucose, Urine (Dipstick) Normal (Negative); Ketone, Urine Negative (Negative); Leukocyte Negative Leu/uL (Negative); Nitrite Negative (Negative); Protein, Urine (Dipstick) Negative (Neg-Trace); RBC/HPF 0-3 HPF (0-3); Specific Gravity, Urine 1.011 (1.002-1.036); Squamous Epithelial 0-3 HPF (0-3); Urobilinogen Normal mg/dL (Less than 2); WBC/HPF 0-3 HPF (0-3); pH, Urine 6.5 (5.0-9.0)
[2021-07-15 16:11] VITALS: BP 147/78; TEMP 98.7
== END 2021-07-15 17:37 | disposition home or self-care (01) ==
LOC: ERS 16:04 → NEURO 18:11
PROVIDERS: ADMIT Internal Medicine; ATTEND Family Medicine
DX: R42 Dizziness and giddiness (principal); I10 Essential (primary) hypertension; E78.5 Hyperlipidemia, unspecified; I87.2 Venous insufficiency (chronic) (peripheral); E86.0 Dehydration; N17.9 Acute kidney failure, unspecified; R73.9 Hyperglycemia, unspecified; I08.8 Other rheumatic multiple valve diseases; Z86.718 Personal history of other venous thrombosis and embolism; Z87.891 Personal history of nicotine dependence; Z79.01 Long term (current) use of anticoagulants; Z79.899 Other long term (current) drug therapy; Z20.822 Contact with and (suspected) exposure to COVID-19
CPT/HCPCS: 0240U; 70450; 70551; 71045; 80061; 81001; 83036; 84484; 85007; 85025; 85027; 85610; 85730; 93005; 93306; 93880; 97116; 97139 ×4; 36415; 80053; 84443; 96374; G0378; J2060; J7050

== ENCOUNTER 2023-02-21 14:59 | Emergency (ER) | payer MEDICARE, OTHER ==
[2023-02-21 16:34] LABS: #Eosinphils 0.1 thou/uL (0.0-0.7); #Monocytes 0.6 thou/uL (0.11-0.59); #Neutrophils 3.4 thou/uL (1.40-6.50); %Basophils 0.5 % (0.0-1.0); %Eosinophils 2.3 % (0.0-10.0); %Lymphocytes 28.3 % (21.0-51.0); %Monocytes 9.6 % (0.0-10.0); %Neutrophils 59.1 % (42.0-75.0); Hemoglobin 12.1 g/dL (12.0-16.0); Mean Corpuscular HGB CONC 32.5 g/dL (32.0-36.0); Mean Corpuscular Hemoglobin 30.1 pg (27.0-31.0); Mean Corpuscular Volume 92.5 fl (78.0-98.0); Mean Platelet Volume 10.2 fL (7.4-10.4); Platelet Count 202 10x3/uL (130-400); RBC Distribution Width 12.9 % (11.5-14.5); Red Blood Cell (RBC) Count 4.02 mill/uL (4.20-5.40); White Blood Cell (WBC) Count 5.8 10x3/uL (4.8-10.8)
[2023-02-21 16:57] LABS: ALT (SGPT) 13 U/L (8-55); AST (SGOT) 18 U/L (5-34); Alkaline Phosphatase 91 U/L (40-110); Anion Gap 13 mmol/L (10-20); BUN (Urea Nitrogen) 22 mg/dL (9.8-20.1); Bilirubin, Total 0.4 mg/dL (0.2-1.2); CK (CPK) 118 U/L (29-168); Calc. Creatinine Clearance 0 mL/min (70-130); Carbon Dioxide 25 mmol/L (23-31); Chloride 107 mmol/L (98-107); Estimated GFR 37; Globulin 2.4 g/dL (2.4-3.5); Glucose 101 mg/dL (83-110); Protein, Total 6.4 g/dL (5.8-8.1); Sodium 141 mmol/L (136-145)
== END 2023-02-21 18:08 | disposition home or self-care (01) ==
LOC: ERS 14:59
DX: R23.3 Spontaneous ecchymoses (principal); E78.5 Hyperlipidemia, unspecified; I10 Essential (primary) hypertension; Z79.899 Other long term (current) drug therapy; Z79.01 Long term (current) use of anticoagulants
CPT/HCPCS: 36415; 80053; 82550; 85025; 93923; 93970